=== PATIENT | male | born 1945 | race Caucasian/White ===

== ENCOUNTER 2016-11-09 09:17 | Emergency (ER) | payer MEDICARE, BC, OTHER ==
[2016-11-09] MEDS ORDERED: MORPHINE SULFATE 5 MG/ML PFS IM ONE (09:43)
[2016-11-09] MEDS ORDERED: ONDANSETRON 4 MG ODT TABLET SL ONE (09:44)
--- NOTE | 2016-11-09 09:53 | Emergency Department Record ---
History of Present Illness - General Chief Complaint: Back Pain/Injury Stated Complaint: BACK PAIN Time Seen by Provider: 11/09/16 09:35 Source: Patient Mode of Arrival: Ambulatory Limitations: No limitations - History of Present Illness Initial Comments: The patient is here due to a worsening of his chronic back pain. He has a LONG hx of severe pain in the back and has a spinal stimulator in place and did have a lumbar fusion about a year ago. He has chronic pain in the posterior buttocks and legs which he takes [place] for and also Lidoderm. About 5 days ago he "overdid it" while working in his garage and slowly developed increased pain in the back. The pain is a sharp aching pain in the lumbar region that intermittently radiates to his buttocks. He denies any leg numbness, tingling, or weakness and also denies any bowel or bladder incontinence or retention. The patient did call his pain specialist Dr. Smith and was instructed to proceed to the ER for "imaging" so he is now here for pain relief and xrays. MD Complaint: Back pain Onset/Timin -: Days(s) Similar Symptoms Previously: Yes Place: Home Radiation: Right leg Severity: Severe Severity scale (1-10): 8 Quality: Other Consistency: Constant Improves With: Immobilization, Other Worsens With: Movement, Sitting upright Context: Turning/twisting, While lifting Treatments Prior to Arrival: Prescription analgesics Treatment Prior to Arrival Comment:: [place], not helping - Related Data Home Medications Medication Instructions Recorded Confirmed Last Taken Atorvastatin Calcium 40 mg PO QHS 09/26/14 11/09/16 11/09/16 Fenofibrate Nanocrystallized 145 mg PO DAILY 09/26/14 11/09/16 11/09/16 [Fenofibrate] Hydrocodone/Acetaminophen [[place] 1 tab PO Q8H PRN 09/26/14 11/09/16 11/09/16 5mg/325mg] Metformin HCl [Fortamet] 500 mg PO DAILY 09/26/14 11/09/16 11/09/16 Pantoprazole Sodium [Protonix] 40 mg PO BID 09/26/14 11/09/16 11/09/16 Sitagliptin Phosphate [Januvia] 100 mg PO DAILY 09/26/14 11/09/16 11/09/16 Sucralfate [Carafate] 1 gm PO DAILY 09/26/14 11/09/16 11/09/16 Thyroid,Pork [[place] Thyroid] 240 mg PO DAILY 09/26/14 11/09/16 11/09/16 Allergies Allergy/AdvReac Type Severity Reaction Status Date / Time aspirin AdvReac Mild HYPERSENSIT Verified 11/09/16 09:23 IVITY Travel Screening - Travel/Exposure Within Last 30 Days Have you traveled within the last 30 days?: Yes Location Detail:: [place] - Travel/Exposure Within Last Year Have you traveled outside the [place] in the last year?: Yes Location Detail:: [place] in the [facility] - Additonal Travel Details Have you been exposed to anyone with a communicable illness?: No - Travel Symptoms Symptom Screening: None Review of Systems Constitutional: Denies: Chills, Fever Eyes: Denies: Eye discharge ENT: Denies: Congestion Respiratory: Denies: Cough, Dyspnea Past Medical History - SOCIAL HISTORY Smoking Status: Former smoker Alcohol Use: None Drug Use: None - RESPIRATORY Hx Respiratory Disorders: Yes Hx Sleep Apnea: Yes Hx of CPAP: Yes - CARDIOVASCULAR Hx Cardio Disorders: No - NEURO Hx Neuro Disorders: No - GI Hx GI Disorders: Yes Hx Reflux: Yes (controlled with meds) - Hx Genitourinary Disorders: No - ENDOCRINE Hx Endocrine Disorders: Yes Hx Thyroid Disease: Yes (thyroidectomy enlarged lymph nodes) Comment:: a1c under 6 - MUSCULOSKELETAL Hx Musculoskeletal Disorders: Yes Hx Musculoskeletal Disease: Yes (bilateral tendonopathy bilat feet) Comment:: right buttock right calf right foot pain - PSYCH Hx Psych Problems: No - HEMATOLOGY/ONCOLOGY Hx Hematology/Oncology Disorders: No Family Medical History Any Significant Family History?: Yes Hx Heart Disease: Father, Mother Physical Exam - General General Appearance: Alert, Oriented x3, Cooperative, No acute distress - Head Head exam: Atraumatic, Normocephalic, Normal inspection - Eye Eye exam: Normal appearance, PERRL - GI/Abdominal GI/Abdominal exam: Soft, Normal bowel sounds. negative: Tenderness - Extremities Extremities exam: Normal inspection, Full ROM, Normal capillary refill. negative: Tenderness - Back Back exam: Reports: Muscle spasm, Vertebral tenderness (mild.). Denies: Normal inspection (There are multiple well healed surgical scars.), CVA tenderness (R) , CVA tenderness (L) - Neurological Neurological exam: Alert, Normal gait, Oriented X3, Reflexes normal (The patellar and achilles reflexes are 2+ and equal bilaterally.). negative: Abnormal gait, Altered, Motor sensory deficit - Psychiatric Psychiatric exam: Normal affect, Normal mood. negative: Agitated Course Vital Signs 11/09/16 09:26 Temperature 98.4 F Pulse Rate 76 Respiratory 20 Rate Blood Pressure 130/69 Pulse Ox 97 - Reevaluation(s) Reevaluation #1: The patient is doing much better at this time. His pain is much improved and he is ambulating normally. 11/09/16 10:33 Reevaluation #2: The patient is doing much better at this time. His pain is well controlled and he is ambulating normally. I did discuss the case with Dr. Smith's staff who relayed the issues to him. He did call the patient in an oral steroid script and does have an appointment with him today. The patient is very stable for discharge. 11/09/16 11:15 Medical Decision Making - Data Complexity MDM Data: X-Ray Ordered and/or Reviewed - Radiology Data Radiology results: Report reviewed (LS Spine: No acute change, Multilevel DJD with post op changes.) Disposition Disposition: Discharge Clinical Impression: Chronic back pain Qualifiers: Back pain location: back pain in unspecified location Back pain laterality: midline Qualified Code(s): M54.9 - Dorsalgia, unspecified Disposition: Home, Self-Care Condition: (1) Good Instructions: Chronic Back Pain (ED) Additional Instructions: Please continue your regular medicines and see Dr. SMITH as directed. Return to the ER for any increased pain, leg weakness, numbness or any bowel or bladder issues. Forms: Patient Portal Access Time of Disposition: 11:08 Quality - Quality Measures Quality Measures: N/A - Blood Pressure Screening View Details: Yes Blood Pressure Classification: Pre-Hypertensive BP Reading Systolic Measurement: 131 Diastolic Measurement: 65 Screening for High Blood Pressure: < Pre-Hypertensive BP, F/U Documented > [ G8950] Pre-Hypertensive Follow-up Interventions: Follow-up with rescreen every year.
--- NOTE | 2016-11-09 14:15 | RADIOLOGY REPORT ---
EXAM: LUMBAR SPINE, TWO VIEWS HISTORY: BACK PAIN. TECHNIQUE: Frontal and lateral views of the lumbar spine were obtained. Comparison: Prior lumbar spine from 09/26/14. FINDINGS: Five non-rib bearing lumbar type vertebral bodies. Post surgical changes with posterior fixation rods and screws at the L4-L5 and L5-S1 levels. Pain catheter device projects over the right lower quadrant with partial visualization of catheter leads. Degenerative changes with end plate degenerative change and osteophytic spurring throughout the lumbar spine. Height and alignment is otherwise preserved. Vascular calcifications. Degenerative changes of the sacroiliac joints also noted bilaterally. IMPRESSION: POST SURGICAL CHANGES, ABOVE. MULTILEVEL DEGENERATIVE CHANGE. JOB NUMBER: [id number] MTDD
== END 2016-11-09 11:15 | disposition home or self-care (01) ==
LOC: ER 09:17
DX: G89.29 Other chronic pain (principal); M54.5 Low back pain; Z98.1 Arthrodesis status
CPT/HCPCS: 99283; 96372; 99284; 72100; J2270

== ENCOUNTER 2017-09-19 10:59 | Day surgery (SDC) | payer MEDICARE, BC, OTHER ==
--- NOTE | 2017-09-19 01:23 | History and Physical Report ---
DATE: 09/18/2017. CHIEF COMPLAINT AND HISTORY OF CHIEF COMPLAINT: This is a patient with a history of intractable lumbar radiculopathy. He has a spinal cord stimulator implant which was placed 10/07/2014. Through time his device appeared to be helping, but he had some control issues with respect to programming. He was evaluated for the new [employer] WaveWriter generator which provides different waveform capabilities and potentially improved pain control. He is here for battery change without extension or lead change. PAST MEDICAL HISTORY: Hypothyroidism, peripheral neuropathy. PAST SURGICAL HISTORY: Thyroid surgery, Achilles repair, foot surgery, stimulator implant. MEDICATIONS ON ADMISSION: To be provided. ALLERGIES: Aspirin. FAMILY HISTORY: Noncontributory. REVIEW OF SYSTEMS: The patient is appropriate and in no acute distress. The remainder of the systems review shows glasses, thyroid disease, chronic bronchitis, sleep apnea, reflux, degenerative arthritis. PHYSICAL EXAMINATION: General: Height and weight are unavailable. Vital Signs: Unavailable. HEENT: Within normal limits. Lungs: Clear. Heart: Regular rate and rhythm. Abdomen: Nontender. Musculoskeletal: Examination of the musculoskeletal system shows the subcutaneous pouch for the generator at the right flank. Midline incisions approximate T11-12 for the lead placement. Chronic pain pattern is lower extremity, somewhat more right than left. Sensory field and motor evaluation is unchanged. Neurologic: Cranial nerves are intact. IMPRESSION: 1. LUMBAR RADICULOPATHY, ICD-10 CODE M54.16. 2. SPINAL CORD STIMULATOR INTERNAL GENERATOR NONFUNCTIONAL. PLAN: The patient is here for generator removal and replacement with the new technology, WaveWriter, from [employer]. The procedure will be considered outpatient, although an overnight stay will be evaluated. JOB NUMBER: [id number] cc: Nik Villavicencio M.D. BRIELLE
[~2017-09-19 10:59] MED LIST: ACETAMINOPHEN 1,000 MG/100 ML BTL IV ONE; CEFAZOLIN 2 Gram 2 GM/50 ML BAG IVPB ONE; FAMOTIDINE 20MG TABLET PO ONE; MECLIZINE 25 MG TABLET PO ONE; METOCLOPRAMIDE 10 MG TABLET PO ONE
[2017-09-19] MEDS ORDERED: BUPIVACAINE 0.5% W/EPI MPF 30 ML VIAL IVP ONE (11:00)
[2017-09-19] MEDS ORDERED: FENTANYL PF 100MCG/2ML VIAL IV ONE (11:00)
[2017-09-19] MEDS ORDERED: LIDOCAINE 2% MDV (20MG/ML) 20ML VIAL IV ONE (11:00)
[2017-09-19] MEDS ORDERED: PROPOFOL 10 MG/ML VIAL IV ONE (11:00)
[2017-09-19] MEDS ORDERED: MIDAZOLAM HCL 2MG/2ML VIAL IV ONE (11:00)
[2017-09-19] MEDS ORDERED: *PACU ONLY* KETAMINE HCL 10 MG/ML (20ML) VIAL IV ONE (11:00)
[2017-09-19] MEDS ORDERED: LIDOCAINE 1% W/EPI 1:200,000 MPF 30ML SQ ONE (11:00)
--- NOTE | 2017-09-20 20:13 | Operative Note - [place] ---
DATE OF SURGERY: 09/19/17. PREOPERATIVE DIAGNOSES: 1. LUMBAR RADICULOPATHY, ICD-10 CODE = M54.16 AND M54.17. 2. SPINAL CORD STIMULATOR INTERNAL GENERATOR NONFUNCTIONAL. SURGERY: INCISION, SUBCUTANEOUS DISSECTION, AND REMOVAL AND REPLACEMENT OF INTERNAL PULSE GENERATOR SPINAL CORD STIMULATOR RIGHT FLANK. SURGEON: HILDA THOMSON D.O. ANESTHESIA: LOCAL SEDATION. ANESTHESIA PROVIDER: LEONILA BENITEZ CRNA. INDICATIONS: This patient presents with a history of intractable lumbar radiculopathy managed by a spinal cord stimulator. Over the last number of months, stimulation patterns have been difficult to control with pain breakthrough difficult to manage. Reviewing the documentation suggests that the internal pulse generator is not maintaining stimulation patterns appropriate to control his pain. After review and discussion, we decided to replace the generator with the new WaveWriter technology from [employer], which will allow increased programmability, better stimulation patterns, and more waveform for stimulation programming. He is here for a battery change only, leaving the electrodes in the original position. SURGERY: Intravenous line, vital sign monitoring, IV sedation. Patient position prone. Sterile prep, sterile technique at the right flank. Previous incision infiltrated, incision made and subcutaneous dissection was conducted to the generator pouch, which was opened and exteriorized. The generator was then from the internal leads. Antibiotic irrigation and Bovie for hemostasis. The new generator was then interfaced to the leads. Appropriate testing was performed confirming functionality, placed back into the pouch and secured to the posterior fascia with nonabsorbable suture and then the incision was closed with Vicryl for fascia and a running subcuticular Vicryl for skin. Dermabond closure approximating the edges of the wound. He was transported to the Recovery Room stable, no side-effects from the procedure or the sedation. When fully awake and alert, complex programming was then performed confirming functionality and reestablishing stimulation to all the appropriate areas. He was prepared for discharge home. DISCHARGE INSTRUCTIONS: 1. The site is to remain clean and dry. No showering or bathing in any way that would disrupt dressings, although the Dermabond will allow showing. He should not sit in a tub or water. 2. He will resume his standard medications and include Levaquin, the antibiotic , 500 mg once a day for 14 days. 3. His activity levels should stay low until he is seen in the office in 5 to 7 days, at which point, we will clear him for further activities. All other instructions provided, numbers to contact if problems given. He was then discharged. cc: Dr. Mathis JOB NUMBER: [id number] MTDD
== END 2017-09-19 14:55 | disposition home or self-care (01) ==
LOC: SUR 10:59
PROVIDERS: ATTEND Pain Medicine Interventional Pain Medicine
DX: M54.16 Radiculopathy, lumbar region (principal); M54.17 Radiculopathy, lumbosacral region; E78.00 Pure hypercholesterolemia, unspecified; E11.9 Type 2 diabetes mellitus without complications; Z79.84 Long term (current) use of oral hypoglycemic drugs; G47.30 Sleep apnea, unspecified; I10 Essential (primary) hypertension; I25.10 Atherosclerotic heart disease of native coronary artery without angina pectoris; E03.9 Hypothyroidism, unspecified
CPT/HCPCS: C1820

== ENCOUNTER 2018-10-17 14:14 | Observation (INO) | payer MEDICARE, BC, OTHER ==
--- NOTE | 2018-10-17 14:23 | Emergency Department Record ---
History of Present Illness - General Chief Complaint: Difficulty Breathing Stated Complaint: WHEEZING,HEADACHE,CONJESTION Time Seen by Provider: 10/17/18 14:21 Source: Patient, Family Mode of Arrival: Ambulatory Limitations: No limitations - History of Present Illness Initial Comments: 73 yo male presents with cough, shortness of breath, pain with coughing, fevers. He presents with his with similar symptoms. He developed the symptoms 4 days prior while traveling in [place]. He was on a cruise that had land excursions on bus as well. His developed similar symptoms 2 days ago. He has had subjective fevers and sore throat. His states he spikes fevers and gets confused and "dellusional". The pain with coughing seems to be the most limiting with his breathing. He states he has had a history of pneumonia in the past. Additionally, he has not had a meal in three days. No diarrhea. Just no appetite. He has exertional dyspnea. Non smoker. MD Complaint: Cough, Pain with inspiration, Shortness of breath -: Days(s) Severity: Mild Quality: Other Consistency: Constant Improves With: Nothing Worsens With: Coughing Known History Of: Other (Sick contacts) Context: Other Associated Symptoms: Cough, Other (Headache) Treatments Prior to Arrival: None - Related Data Allergies Allergy/AdvReac Type Severity Reaction Status Date / Time aspirin AdvReac Mild HYPERSENSIT Verified 10/17/18 14:28 IVITY Review of Systems Constitutional: Reports: Fever, Malaise. Denies: Chills Eyes: Denies: Eye discharge ENT: Reports: Congestion, Throat pain Respiratory: Reports: Cough Cardiovascular: Denies: Chest pain, Palpitations, Syncope Endocrine: Denies: Polydipsia, Polyuria Gastrointestinal: Denies: Abdominal pain, Diarrhea, Nausea, Vomiting Genitourinary: Denies: Dysuria, Frequency, Hematuria Musculoskeletal: Denies: Arthralgia, Back pain, Myalgia Skin: Denies: Bruising, Change in color, Rash Neurological: Reports: Headache. Denies: Seizure, Weakness Psychiatric: Denies: Anxiety Hematological/Lymphatic: Denies: Easy bleeding, Easy bruising Past Medical History - SOCIAL HISTORY Smoking Status: Former smoker - RESPIRATORY Hx Respiratory Disorders: Yes Hx Sleep Apnea: Yes Hx of CPAP: Yes - CARDIOVASCULAR Hx Cardio Disorders: No Comment:: pt denies heart problems. 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) - GI Hx GI Disorders: Yes Hx Reflux: Yes (controlled with meds) - Hx Genitourinary Disorders: Yes Hx Bladder Problem: Yes (frequency) Hx Prostate Problems: Yes - ENDOCRINE Hx Endocrine Disorders: Yes Hx Diabetes: Yes (dx'd many yrs ago) Hx Thyroid Disease: Yes (thyroidectomy 2008) Comment:: FBS 120-130 - MUSCULOSKELETAL Hx Musculoskeletal Disorders: Yes Hx Back Injury: Yes (slip and fall yrs ago) Hx Musculoskeletal Disease: Yes (bilateral tendonopathy bilat feet) Comment:: right buttock right calf right foot pain - PSYCH Hx Psych Problems: Yes Hx Anxiety: Yes - HEMATOLOGY/ONCOLOGY Hx Hematology/Oncology Disorders: No Family Medical History Hx Heart Disease: Father, Mother Physical Exam - General General Appearance: Alert, Oriented x3, Cooperative, Other (Dyspnea with conversation and activity) Limitations: No limitations - Head Head exam: Atraumatic, Normal inspection - Eye Eye exam: Normal appearance, PERRL. negative: Conjunctival injection, Scleral icterus - ENT ENT exam: Normal exam, Mucous membranes moist, Normal orophraynx Ear exam: Normal external inspection Nasal Exam: Normal inspection Mouth exam: Normal external inspection Teeth exam: Normal inspection Throat exam: Normal inspection. negative: Tonsillar erythema, Tonsillomegaly, Tonsillar exudate, R peritonsillar mass, L peritonsillar mass - Neck Neck exam: Normal inspection, Full ROM. negative: Lymphadenopathy, Tenderness - Respiratory Respiratory exam: Accessory muscle use, Decreased breath sounds, Rhonchi, Wheezes, Other (harsh cough). negative: Prolonged expiratory, Respiratory distress - Cardiovascular Cardiovascular Exam: Regular rate, Normal rhythm, Normal heart sounds - GI/Abdominal GI/Abdominal exam: Soft. negative: Distended, Guarding, Tenderness - Rectal Rectal exam: Deferred - exam: Deferred - Extremities Extremities exam: Normal inspection. negative: Calf tenderness, Pedal edema, Tenderness - Back Back exam: Denies: CVA tenderness (R), CVA tenderness (L) - Neurological Neurological exam: Alert, Oriented X3 - Psychiatric Psychiatric exam: Normal affect, Normal mood - Skin Skin exam: Dry, Intact, Normal color, Warm Course - Reevaluation(s) Reevaluation #1: 10/17/18 15:12 The CBC was reviewed. WBC is 2.5 (EMR reviewed. WBC 2014 was 3.0 -3.5) Plt is 127. 10/17/18 15:13 10/17/18 15:38 No changes on the CMP The Influenza is Positive for Influenza A The CXR was negative for acute process Medical Decision Making - Lab Data Result diagrams: 10/18/18 06:11 10/17/18 14:37 Disposition Disposition: Admit Clinical Impression: Influenza A, Dehydration, Dyspnea, Confusion Disposition: Still a Patient at [facility] Decision to Admit: Admit from ER Decision to Admit Date: 10/17/18 Decision to Admit Time: 16:04 Condition: (1) Good Time of Disposition: 16:04 Quality - Quality Measures Quality Measures: N/A - Blood Pressure Screening Does Patient Have Any of the Following: Active Dx of HTN Blood Pressure Classification: Pre-Hypertensive BP Reading Systolic Measurement: 139 Diastolic Measurement: 83 Screening for High Blood Pressure: Patient Exclusion, Hx of HTN [G9744]
[2018-10-17] MEDS ORDERED: METHYLPREDNISOLONE PF 125MG/VIAL IM ONE (14:26)
[2018-10-17] MEDS ORDERED: IPRATROPIUM/ALBUTEROL (0.5MG/3MG) NEB INH ONE (14:26)
[2018-10-17] MEDS ORDERED: AZITHROMYCIN 500 MG TABLET PO ONE (14:29)
[2018-10-17] MEDS ORDERED: CEFTRIAXONE 1GM/50ML BAG 1 GM/50 ML BAG IVPB ONE (14:30)
[2018-10-17] MEDS ORDERED: ACETAMINOPHEN 1,000 MG/100 ML BTL IVPB ONE (14:31)
[2018-10-17 14:53] LABS: ABSOLUTE NEUTROPHIL COUNT 1.35; BASO % 0.4 % (0-6); EOS % 1.6 % (0-6); GRAN % 54.2 % (47-80); HEMATOCRIT 41.2 % (42.0-52.0); HEMOGLOBIN 13.8 gm/dl (14.0-18.0); LYMPH % 30.1 % (16-45); MEAN CORPUSCULAR HEMOGLOBIN 30.8 pg (27-33); MEAN CORPUSCULAR HGB CONC 33.5 g/dl (32-36); MEAN PLATELET VOLUME 11.4 fl (7.4-10.4); MONO % 13.7 % (0-9); PLATELET COUNT 127 K/uL (130-400); RED BLOOD COUNT 4.48 M/uL (4.40-5.70); RED CELL DISTRIBUTION WIDTH 13.1 % (11.5-14.5); WHITE BLOOD COUNT W/O DIFF 2.5 K/uL (4.2-12.2)
[2018-10-17 15:08] LABS: BLOOD UREA NITROGEN 15 mg/dL (8-23); EST GLOMERULAR FILTRATION RATE > 60 mL/min; TOTAL PROTEIN 6.8 g/dL (6.6-8.7)
[2018-10-17 15:10] LABS: GLUCOSE,RANDOM 113 mg/dL (74-109)
[2018-10-17 15:13] LABS: ALB/GLOB RATIO 1.6 (1.1-1.8); ALBUMIN 4.2 g/dL (4.0-5.0); ALKALINE PHOSPHATASE 33 U/L (40-129); ALT/SGPT 31 U/L (<41); AST/SGOT 37 U/L (10.0-50.0)
[2018-10-17 15:14] LABS: INFLUENZA A POSITIVE (NEGATIVE); INFLUENZA B NEGATIVE (NEGATIVE)
[2018-10-17] MEDS ORDERED: BENZONATATE 100 MG CAPSULE PO ONE (15:23)
[2018-10-17] MEDS ORDERED: OSTELTAMIVIR 75 MG CAP PO ONE (15:25)
[2018-10-17] MEDS ORDERED: METHYLPREDNISOLONE PF 125MG/VIAL IVP SCH (17:29)
[2018-10-17] MEDS ORDERED: ALBUTEROL SULFATE (0.083%) 2.5 MG/3 ML NEB INH PRN (17:29)
[2018-10-17] MEDS ORDERED: ACETAMINOPHEN 325 MG TAB PO PRN (17:29)
[2018-10-17] MEDS ORDERED: 0.9 % SODIUM CHLORIDE 1000ML 1,000 ML IV PRN (17:29)
[2018-10-17] MEDS ORDERED: CEFTRIAXONE SODIUM 1 GM in 0.9 % SODIUM CHLORIDE 100ML 100 ML IVPB SCH (17:29)
[2018-10-17] MEDS ORDERED: BENZONATATE 100 MG CAPSULE PO PRN (17:29)
[2018-10-17] MEDS: IPRATROPIUM/ALBUTEROL (0.5MG/3MG) NEB INH SCH ×2 (17:42→21:59)
[2018-10-17] MEDS ORDERED: TEMAZEPAM 15 MG CAPSULE PO PRN ×2 (18:52→22:00)
[2018-10-17] MEDS: SUCRALFATE 1 G/10 ML UD PO SCH (20:11)
[2018-10-17] MEDS ORDERED: HYDROXYZINE PAMOATE 25 MG CAPSULE PO PRN (20:51)
[2018-10-17] MEDS ORDERED: FLUTICASONE PROPIONATE 50MCG NASAL 16 GM BTL SCH (22:00)
[2018-10-17] MEDS: OSTELTAMIVIR 75 MG CAP PO SCH (22:01)
[2018-10-17] MEDS: METFORMIN ER HCL 500 MG TAB.ER.24H PO SCH (22:01)
[2018-10-17] MEDS: PANTOPRAZOLE SODIUM 40 MG TABLET PO SCH (22:01)
[2018-10-17] MEDS: METHYLPREDNISOLONE PF 125MG/VIAL IVP SCH (22:02)
[2018-10-18] MEDS ORDERED: SENNOSIDES/DOCUSATE SODIUM UD CAPSULE PO PRN (01:59)
[2018-10-18] MEDS: METHYLPREDNISOLONE PF 125MG/VIAL IVP SCH (05:23)
[2018-10-18] MEDS: IPRATROPIUM/ALBUTEROL (0.5MG/3MG) NEB INH SCH ×2 (06:04→09:55)
[2018-10-18 06:55] LABS: ABSOLUTE NEUTROPHIL COUNT 4.18; HEMATOCRIT 39.9 % (42.0-52.0); HEMOGLOBIN 13.5 gm/dl (14.0-18.0); MEAN CORPUSCULAR HGB CONC 33.8 g/dl (32-36); MEAN PLATELET VOLUME 11.3 fl (7.4-10.4); PLATELET COUNT 121 K/uL (130-400); RED BLOOD COUNT 4.29 M/uL (4.40-5.70); WHITE BLOOD COUNT W/O DIFF 4.7 K/uL (4.2-12.2)
[2018-10-18 07:09] LABS: MEAN CORPUSCULAR HEMOGLOBIN 31.4 pg (27-33)
[2018-10-18 07:10] LABS: PLATELET ESTIMATE NORMAL (NORMAL)
[2018-10-18] MEDS ORDERED: ATORVASTATIN 20 MG TABLET PO SCH (10:00)
[2018-10-18] MEDS ORDERED: AZITHROMYCIN 500 MG TABLET PO SCH (10:00)
[2018-10-18] MEDS ORDERED: ENOXAPARIN 40 MG/0.4 ML SYR SC SCH (10:00)
[2018-10-18] MEDS ORDERED: DONEPEZIL HCL 5 MG TABLET PO SCH (10:00)
[2018-10-18] MEDS ORDERED: LIDOCAINE 5% PATCH TOP SCH (10:00)
[2018-10-18] MEDS ORDERED: THYROID PORK 240 MG PO SCH (10:00)
[2018-10-18] MEDS ORDERED: Non-Formulary MISC (Sitagliptin Phosphate [Januvia] 100 MG) PO SCH (10:00)
[2018-10-18] MEDS ORDERED: TAMSULOSIN HCL 0.4 MG CAP.ER.24H PO SCH (10:00)
[2018-10-18] MEDS ORDERED: FENOFIBRATE NANOCRYSTALLIZED 145 MG PO SCH (10:00)
--- NOTE | 2018-10-18 10:15 | Discharge Note ---
VTE H&P Assessment - Risk for VTE Risk for VTE: Yes Risk Level: Moderate Risk Assessment Date: 10/17/18 Risk Assessment Time: 17:00 VTE Orders Placed or Will Be Placed: Yes Discharge Medications - Discharge Medications Prescriptions: Azithromycin 250 mg PO DAILY #6 tablet Prednisone [Prednisone 10Mg] 10 mg PO ASDIR #30 tab Albuterol Sulfate [Proair Hfa] 1 - 2 puff IH .EVERY 4-6 HOURS PRN #1 inhaler PRN Reason: Difficulty In Breathing Oseltamivir Phosphate [Tamiflu] 75 mg PO BID #10 capsule Home Medications: Ambulatory Orders Atorvastatin Calcium 40 mg PO QHS 09/26/14 [Last Taken 1 Day Ago ~10/16/18] Fenofibrate Nanocrystallized [Fenofibrate] 145 mg PO DAILY 09/26/14 [Last Taken 1 Day Ago ~10/16/18] Hydrocodone/Acetaminophen [[place] 5mg/325mg] 1 tab PO Q8H PRN 09/26/14 [Last Taken 1 Day Ago ~10/16/18] Metformin HCl [Fortamet] 500 mg PO DAILY 09/26/14 [Last Taken 1 Day Ago ~10/16/18] Pantoprazole Sodium [Protonix] 40 mg PO BID 09/26/14 [Last Taken 1 Day Ago ~10/16/18] Sitagliptin Phosphate [Januvia] 100 mg PO DAILY 09/26/14 [Last Taken 1 Day Ago ~10/16/18] Sucralfate [Carafate] 1 gm PO DAILY 09/26/14 [Last Taken 1 Day Ago ~10/16/18] Thyroid,Pork [[place] Thyroid] 240 mg PO DAILY 09/26/14 [Last Taken 1 Day Ago ~10/16/18] Albuterol Sulfate [Proair Hfa] 1 - 2 puff IH .EVERY 4-6 HOURS PRN #1 inhaler 10/18/18 [Last Taken Unknown] Azithromycin 250 mg PO DAILY #6 tablet 10/18/18 [Last Taken Unknown] Donepezil HCl [Aricept] 10 mg PO DAILY tablet 10/18/18 [Last Taken Unknown] Oseltamivir Phosphate [Tamiflu] 75 mg PO BID #10 capsule 10/18/18 [Last Taken Unknown] Prednisone [Prednisone 10Mg] 10 mg PO ASDIR #30 tab 10/18/18 [Last Taken Unknown] Discharge Note - Date Date of Discharge Note: 10/18/18 Condition: (1) Good Additional Instructions: follow up with Primary Dr Jain in 5-10 days drink fluids Forms: Patient Portal Access Activity at Discharge: Increase Activity as Tolerated
[2018-10-18] MEDS: SUCRALFATE 1 G/10 ML UD PO SCH (10:33)
[2018-10-18] MEDS: METFORMIN ER HCL 500 MG TAB.ER.24H PO SCH (10:33)
[2018-10-18] MEDS: OSTELTAMIVIR 75 MG CAP PO SCH (10:33)
[2018-10-18] MEDS: PANTOPRAZOLE SODIUM 40 MG TABLET PO SCH (10:34)
--- NOTE | 2018-10-18 11:10 | RADIOLOGY REPORT ---
VIEW: 2 view chest. HISTORY: Cough and fever for the past 3 days. TECHNIQUE: PA and lateral upright views of the chest were obtained. COMPARISON: 05/01/2013. FINDINGS: A loop recorder device is present, electrical stimulator leads are noted within the thoracic region. The heart, mediastinum, and pulmonary vasculature are normal. There are no visible acute infiltrates or effusions. There was no pneumothorax. Degenerative changes are present within the spine and shoulders. IMPRESSION: No acute chest pathology identified. MTDD
--- NOTE | 2018-10-18 12:40 | History and Physical Report ---
DATE OF ADMISSION: 10/18/2018 CHIEF COMPLAINT/HISTORY OF CHIEF COMPLAINT: Cough, congestion, wheezing, short of breath. HISTORY OF PRESENT ILLNESS: This 73-year-old male presented to the emergency department with shortness of breath, cough, for the last 3 to 4 days. He was on an [place] cruise with his , they were both diagnosed with influenza A. He was delusional according to the . Fever spiked up and he was confused. He is coughing severely. He was wheezing in all lung rios. He was seen in the emergency department by Dr. Chavez and admitted to the hospital for influenza A, bronchitis, diabetes mellitus type 2, dehydration, confusion. His chest x-ray was normal for acute pulmonary process. He does have a loop recorder in place. His white count is 2500, platelets 127,000, repeat. He traveled to [place] by boat and plane. MEDICAL HISTORY: He has varicose veins. He has diabetes mellitus type 2. He is an ex-smoker, he stopped 30 years ago. He has a history of bronchitis. He may have peripheral artery disease, it sounds like more varicose veins. He was not quite sure why he has a loop recorder. His state farm agent is Dr. Liu, his primary doctor is Dr. Nadja Jain. He has hypothyroidism, GERD, and hypercholesterolemia. SURGICAL HISTORY: Back injuries, spinal implant, laminectomy x2, thyroidectomy, tendon reconstruction of the right foot. He has low back with sciatica right leg and foot. CURRENT MEDICATIONS: 1. Thyroid [place] 240 mg daily. 2. Carafate 1 gram daily, usually that is 1 gram before meals and at bedtime. 3. Januvia 100 mg daily. 4. Protonix 40 mg b.i.d. 5. Metformin 500 mg daily. 6. Jarales p.r.n. 7. Fenofibrate 145 mg daily. 8. Atorvastatin 40 mg at bedtime. ALLERGIES: ASPIRIN. SOCIAL HISTORY: He smoked 1 pack a day for 30+ years. Former smoker, quit in 1994. Rare alcohol use, no illegal drug use. FAMILY HISTORY: Father and mother had heart disease. SYSTEMS REVIEW: HEENT: Congestion, cough, sore throat for the last 4 days, severe cough, and body aches, confusion, fevers. CARDIOVASCULAR: No chest pain, palpitations, no arrhythmias. He does have some rib pain with coughing. RESPIRATORY: Wheezing in all lung rios. GASTROINTESTINAL: No nausea, vomiting, or diarrhea, black stools, or bloody stools. GENITOURINARY: No dysuria, hematuria, frequency, or burning on urination. MUSCULOSKELETAL: He has some low back pain which is chronic. NEUROLOGIC: No CVA, paralysis, or paresthesias. ENDOCRINE: He has diabetes type 2, overweight. INTEGUMENT: No rash, ulcers, yellow moles, or skin problems. PHYSICAL EXAMINATION: GENERAL: Height is 5 feet 9 inches, weight is 234 pounds. VITAL SIGNS: Temperature 98.0, pulse is 92, blood pressure 139/83, respiratory rate is 16, pulse ox is 95% on room air. HEENT: Pupils are equal, round, and reactive to light and accomodation. Extraocular muscles are intact. Throat is clear, nose is clear. Tympanic membranes are mcclure. NECK: Supple. No jugular venous distention, no hepatojugular reflux, no carotid bruits, thyroid is smooth. CARDIOVASCULAR: Regular rate and rhythm without murmurs, clicks, rubs, or gallops. RESPIRATORY: Wheezing bilaterally, scant. ABDOMEN: Soft, nontender, no hepatosplenomegaly, no mass, no tenderness. Bowel sounds are active. He is overweight. EXTREMITIES: No pitting edema, no cyanosis, no clubbing. Full range of motion. Peripheral pulses are good. BREASTS: Normal male breasts. RECTAL: Deferred. GENITALIA: Deferred. NEUROLOGIC: Cranial nerves II through XII intact. No gross defects in sensation. Normal strength, normal deep tendon reflexes equal bilaterally. Babinski's negative. MENTAL STATUS: Alert and oriented x3. IMPRESSION: 1. Influenza A bronchitis. 2. Dehydration. 3. Confusion secondary to influenza A and fever. 4. Diabetes mellitus type 2. 5. Hypercholesterolemia. 6. Hypothyroidism. 7. Gastroesophageal reflux disease. 8. Chronic low back pain with sciatic in the right leg. 9. Hypercholesterolemia. PLAN: IV fluids. He is getting Tamiflu 75 mg b.i.d. for 5 days. Solu-Medrol 60 mg q.8 hours. Breathing treatments. Lovenox to prevent DVT. Azithromycin 500 mg a day, he is also getting IV Rocephin and Azithromycin. Albuterol breathing treatments every 4 hours while awake. We will discharge, he is doing much better. [facility]
--- NOTE | 2018-10-18 12:50 | Discharge Summary ---
DISCHARGE DIAGNOSES: 1. Influenza A bronchitis. 2. Diabetes mellitus type 2. 3. Hypothyroidism. 4. Hypercholesterolemia. 5. Gastroesophageal reflux disease. 6. Mild dementia. He is on Aricept. ATTENDING PHYSICIAN: J Luis Zacarias DO REASON FOR HOSPITALIZATION: This 73-year-old male was on a cruise to [place], airplane and ship. He and his came down with influenza A. He was coughing, severely short of breath. Came into the emergency department for evaluation by Dr. Chavez. Admitted to the hospital because he was wheezing and had some confusion with fevers. He is doing much better at this time. SIGNIFICANT FINDINGS: Chest x-ray showing no acute pulmonary process but he has a loop recorder in place. His lab work initially with white count 2500 in [place] [id number] at this time. Hemoglobin 13.5. His glucose is running a little bit high but he got some Solu-Medrol, 233. He is influenza type A positive. His is also positive for influenza A. THERAPY PROVIDED: He was given IV Solu-Medrol because of his severe wheezing in all lung rios. He was also started on Rocephin and azithromycin. We will continue the azithromycin and the Tamiflu was also started. He was given albuterol DuoNeb treatments q.4 h. while awake. We will send him home with an albuterol inhaler. HOSPITAL COURSE: Doing much better. Feeling better. Drinking and eating without any difficulties. CONDITION ON DISCHARGE: Much improved. DISCHARGE INSTRUCTIONS: Follow up with family doctor, Dr. Nadja Jain. Continue his home medications and add Tamiflu 75 mg b.i.d. for 5 days, prednisone taper starting at 40 mg a day for 3 days, then 30 mg a day for 3 days, then 20 mg a day for 3 days, and then 10 mg a day for 3 days. Albuterol inhaler 2 puffs q.4 h. while awake and also azithromycin 250 mg daily for 6 days. He has already had the loading dose in the hospital. HOME MEDICATIONS: 1. Thyroid [place] 240 daily. 2. Carafate as directed at home. 3. Januvia 100 mg daily. 4. Protonix 40 mg b.i.d. 5. Metformin 500 mg daily. 6. Fenofibrate 145 mg daily. 7. Atorvastatin 40 mg at h.s. 8. Prednisone taper as directed. 9. Aricept 10 mg daily. 10. Lidocaine patches for his back. MTDD
[2018-10-18] MEDS ORDERED: CEFTRIAXONE SODIUM 1 GM in 0.9 % SODIUM CHLORIDE 100ML 100 ML IVPB SCH (15:00)
== END 2018-10-18 12:10 | disposition home or self-care (01) ==
LOC: ER 14:14 → MEDSURG 16:32
PROVIDERS: ADMIT Emergency Medicine; ATTEND Emergency Medicine
DX: J09.X2 Influenza due to identified novel influenza A virus with other respiratory manifestations (principal); R06.00 Dyspnea, unspecified; E86.0 Dehydration; R41.0 Disorientation, unspecified; R51 Headache; R09.89 Other specified symptoms and signs involving the circulatory and respiratory systems; E11.9 Type 2 diabetes mellitus without complications; E78.00 Pure hypercholesterolemia, unspecified; E03.9 Hypothyroidism, unspecified; G62.9 Polyneuropathy, unspecified; K21.9 Gastro-esophageal reflux disease without esophagitis; E89.0 Postprocedural hypothyroidism; Z95.818 Presence of other cardiac implants and grafts; Z87.891 Personal history of nicotine dependence
CPT/HCPCS: 85025; 80053; 36416; 82948; 87400; 85027; 71046; 94640 ×3; 94760 ×2; G0378 ×2; J0696; 96365; 96366; 99220; 99285; J2930